=== PATIENT | female | born 1995 | race Caucasian/White ===

== ENCOUNTER 2017-12-10 10:26 | Emergency (ER) | payer SELFPAY ==
--- NOTE | 2017-12-10 10:56 | ER Document Report ---
ED General - General Chief Complaint: Flank Pain Stated Complaint: SINUS PAIN, LOW BACK PAIN Time Seen by Provider: 12/10/17 10:35 Notes: 21-year-old female patient emergency department complaining of discomfort with urination. No burning but having some right flank pain that radiates down to the suprapubic area. Denies any vaginal discharge. Does not think that she is . Also complaining of a stuffy nose and sinus pressure. Patient thinks she may have a sinus infection. Denies any fever, chills, sweats. No vomiting. No shortness of breath. - HPI Onset: Yesterday Onset/Duration: Gradual Quality of pain: Achy, Cramping Severity: Mild Pain Level: 1 Associated symptoms: Allergy/hay fever, Sinus pain/drainage. denies: Body/ muscle aches, Chest pain, Chills, Earache, Fever, Headache, Shortness of breath - Related Data Allergies/Adverse Reactions: acetaminophen [From Tylenol] Allergy (Verified 12/10/17 11:36) codeine Allergy (Verified 12/10/17 11:36) ibuprofen [From Motrin] Allergy (Verified 12/10/17 11:36) Sulfa (Sulfonamide Antibiotics) Allergy (Verified 12/10/17 11:36) Past Medical History - General Information source: Patient - Social History Smoking Status: Current Every Day Smoker Chew tobacco use (# tins/day): No Frequency of alcohol use: Occasional Drug Abuse: None Lives with: Spouse/Significant other Family History: Reviewed & Not Pertinent Patient has suicidal ideation: No Patient has homicidal ideation: No - Medical History Notes: Asthma Renal/ Medical History: Denies: Hx Peritoneal Dialysis Past Surgical History: Reports: Hx Section, Hx Cholecystectomy, Hx Tonsillectomy Review of Systems - Review of Systems Constitutional: No symptoms reported EENT: Nose congestion, Nose discharge, Sinus pressure, Sinus discharge. denies : Blurred vision, Double vision, Nose pain, Mouth pain Cardiovascular: No symptoms reported. denies: Chest pain, Palpitations, Heart racing Respiratory: denies: Cough, Hurts to breathe, Short of breath, Wheezing Gastrointestinal: No symptoms reported Genitourinary: Flank pain. denies: Burning, Dysuria, Discharge, Hematuria, Incontinence Female Genitourinary: denies: , Vaginal discharge, Vaginal bleeding, Vaginal odor Musculoskeletal: Back pain. denies: Joint pain, Muscle pain, Muscle stiffness Skin: No symptoms reported Hematologic/Lymphatic: No symptoms reported Neurological/Psychological: No symptoms reported Physical Exam - Vital signs Vitals: Temp Pulse Resp BP Pulse Ox 98.3 F 70 20 108/48 L 98 12/10/17 10:33 12/10/17 10:33 12/10/17 10:33 12/10/17 10:33 12/10/17 10:33 Interpretation: Normal - General General appearance: Appears well, Alert - HEENT Head: Normocephalic, Atraumatic Eyes: Normal Pupils: PERRL - Respiratory Respiratory status: No respiratory distress Chest status: Nontender Breath sounds: Normal Chest palpation: Normal - Cardiovascular Rhythm: Regular Heart sounds: Normal auscultation Murmur: No - Abdominal Inspection: Normal Distension: No distension Bowel sounds: Normal Tenderness: Nontender Organomegaly: No organomegaly - Back Back: Normal, Nontender - Extremities General upper extremity: Normal inspection, Nontender, Normal color, Normal ROM , Normal temperature General lower extremity: Normal inspection, Nontender, Normal color, Normal ROM , Normal temperature, Normal weight bearing. No: Sophia's sign - Neurological Neuro grossly intact: Yes Cognition: Normal Orientation: AAOx4 [place] Coma Scale Eye Opening: Spontaneous [place] Coma Scale Verbal: Oriented [place] Coma Scale Motor: Obeys Commands [place] Coma Scale Total: 15 Speech: Normal Motor strength normal: LUE, RUE, LLE, RLE Sensory: Normal - Psychological Associated symptoms: Normal affect, Normal mood - Skin Skin Temperature: Warm Skin Moisture: Dry Skin Color: Normal Course - Re-evaluation Re-evalutation: 12/10/17 11:43 Patient does have small amount of WBCs and RBCs in the urine. Some right flank pain. Patient reports that there was a IUD which had become migratory and ended up having to go to the operating room to have it removed which affected intentionally the ureter on the right side. Will order a retroperitoneal ultrasound at this time to rule out any type of obstruction. Treat with antibiotics and pain meds as needed at this time. 12/10/17 12:18 Ultrasound performed which shows no significant hydronephrosis or obstruction. Incidental finding of a right ovarian cyst with positive blood flow. This is likely causing some of the pain in the right lower area. We will give her some pain medications at this time prescription for the same. Follow-up with OB/ [facility]. Return for any worsening symptoms or concerns. Based on the potential for UTI will treat with antibiotics as well. - Vital Signs Vital signs: Temp Pulse Resp BP Pulse Ox 98.3 F 70 20 108/48 L 98 12/10/17 10:33 12/10/17 10:33 12/10/17 10:33 12/10/17 10:33 12/10/17 10:33 Discharge - Discharge Clinical Impression: Right ovarian cyst Urinary tract infection Qualifiers: Urinary tract infection type: site unspecified Hematuria presence: without hematuria Qualified Code(s): N39.0 - Urinary tract infection, site not specified Condition: Good Disposition: HOME, SELF-CARE Instructions: Cephalexin ([facility]), Urinary Tract Infection ([facility]) Additional Instructions: Ovarian Cyst Your examination shows the presence of an ovarian cyst. This is a ball of fluid attached to the ovary. Ovarian cysts in women of child-bearing age are usually innocent. However, the cyst may cause pain when it grows or bursts. An innocent ovarian cyst will usually go away by itself. When the cyst becomes painful, you should rest. Pain medication may be required. Some women find a hot water bottle soothing. The pain usually resolves within one or two days. After menopause, an ovarian cyst may mean a tumor, and requires more aggressive evaluation -- usually surgery is recommended to remove or biopsy the cyst. A very large cyst requires evaluation at any age. Most cysts (even the innocent ones) require follow-up examination. Call the doctor or return at any time if the pain increases significantly, if you become faint, or if you experience vaginal bleeding. Prescriptions: Cephalexin Monohydrate [Keflex 500 mg Capsule] 500 mg PO Q6H 5 Days capsule Tramadol HCl [Ultram 50 mg Tablet] 50 mg PO QID PRN 5 Days #20 tab PRN Reason: Pain Scale Of 3 Referrals: CHEL GARCIA MD [ACTIVE STAFF] - Follow up in 3-5 days
[2017-12-10 11:12] LABS: AMORPHOUS SEDIMENT,URINE TRACE /HPF; APPEARANCE,URINE CLOUDY; BILIRUBIN,URINE NEGATIVE (NEGATIVE); COLOR,URINE YELLOW; GLUCOSE, URINE NEGATIVE (NEGATIVE); KETONES,URINE NEGATIVE (NEGATIVE); LEUKOCYTE ESTERASE,URINE NEGATIVE (NEGATIVE); NITRITE,URINE NEGATIVE (NEGATIVE); PROTEIN,URINE NEGATIVE (NEGATIVE); URINE SPECIFIC GRAVITY 1.004; UROBILINOGEN,URINE NEGATIVE mg/dL (<2.0)
[2017-12-10] MEDS ORDERED: CEPHALEXIN 500 MG CAPSULE PO ONE (11:30)
[2017-12-10] MEDS ORDERED: IBUPROFEN 800 MG TABLET PO ONE (11:30)
[2017-12-10] MEDS ORDERED: TRAMADOL HCL 50 MG TABLET PO PRN (11:35)
--- NOTE | 2017-12-10 12:29 | RADIOLOGY REPORT (SQ) ---
EXAM DESCRIPTION: U/S RETROPERITON (RENAL/AORTA) COMPLETED DATE/TIME: 12/10/2017 12:05 pm REASON FOR STUDY: right flank pain COMPARISON: None. TECHNIQUE: Dynamic and static grayscale images acquired of the kidneys and bladder and recorded on P ACS. Additional selected color Doppler and spectral images recorded. LIMITATIONS: None. FINDINGS: RIGHT KIDNEY: Normal size, 10 cm in length. Normal echogenicity. No solid or suspicious ma sses. No hydronephrosis. No calcifications. LEFT KIDNEY: Normal size 10.2 cm in length. Normal echogenicity. No solid or suspicious masses. No h ydronephrosis. No calcifications. BLADDER: Decompressed, not well seen. OTHER FINDINGS: Patient was tender on exam of the bladder. The right ovary measures 4.6 x 3.6 x 3.6 cm in size with a 4.4 cm septated ovarian cyst. Normal right ovary color flow and spectral waveforms suggest against right ovary torsion. Results called to Dr. Martini in the emergency room IMPRESSION: No hydronephrosis or hydroureter Bladder decompressed, not well seen 4.4 cm septated right ovarian cyst, likely a hemorrhagic cyst. No ultrasound evidence of right ovary torsion TECHNICAL DOCUMENTATION: JOB ID: [id number] [employer]- All Rights Reserved Reading location - IP/workstation name: [email or web address]
[2017-12-10 12:33] VITALS: BP 100/54
== END 2017-12-10 12:33 | disposition home or self-care (01) ==
LOC: ER 10:26
DX: N39.0 Urinary tract infection, site not specified (principal); N83.291 Other ovarian cyst, right side; J30.1 Allergic rhinitis due to pollen; M54.5 Low back pain; R09.81 Nasal congestion; J34.89 Other specified disorders of nose and nasal sinuses; F17.200 Nicotine dependence, unspecified, uncomplicated; Z88.6 Allergy status to analgesic agent; Z88.5 Allergy status to narcotic agent; Z88.2 Allergy status to sulfonamides
CPT/HCPCS: 76770; 81001; 81025; 87086; 99284